=== PATIENT | female | born 1965 ===

== ENCOUNTER 2025-05-30 23:35 | Emergency (ER) | payer OTHER ==
[~2025-05-30] VITALS: Ht 160 cm; Wt 54.5 kg
[2025-05-31 01:01] LABS: Alanine Aminotransferase 18 U/L (7-40); Albumin 4.8 g/dL (3.2-4.8); Alkaline Phosphatase 69 U/L (46-116); Anion Gap 10 (5-15); BUN/Creatinine Ratio 23.2 (10.0-20.0); Bilirubin, Total 0.6 mg/dL (0.2-1.0); Blood Urea Nitrogen 13 mg/dL (9-23); Calcium 10.1 mg/dL (8.7-10.4); Carbon Dioxide 27 mmol/L (20-31); Chloride 105 mmol/L (98-107); Potassium 3.7 mmol/L (3.5-5.1); Sodium 142 mmol/L (136-145); Total Protein 7.4 g/dL (5.7-8.2)
[2025-05-31 01:04] LABS: Hematocrit 36.0 % (36.0-46.0); Hemoglobin 12.1 g/dL (12.2-16.2); Mean Corpuscular Hemoglobin 29.7 pg (28.0-32.0); Mean Corpuscular Volume 88.5 fL (80.0-100.0); Nucleated Red Blood Cells % 0.0 %
[2025-05-31 01:05] LABS: Glucose 218 mg/dL (74-106)
--- NOTE | 2025-05-31 02:17 | DVH ---
CHEST RADIOGRAPH Indication: cp Technique: Single frontal view of the chest was obtained Comparison: None IMPRESSION: Heart appears normal in size. The lungs appear clear without focal airspace opacity, effusion, or pn eumothorax
--- NOTE | 2025-05-31 03:26 | ED.PDOC ---
History of Present Illness HPI Comments 60 y/o Irish speaking F is BIBA for c/o sternal chest pain, that radiates to her left chest wall, shoulder, and arm, and headache. Patient reports sudden onset of symptoms after returning from an outdoor walk, last night, 3x hours prior to arrival. Pain is a 9.10 in severity. No history of pain in the past. Denies any nausea, vomiting, shortness of breathe, fever, chills, or further associated symptoms. Past medical history of DM and HLD and a FMHx of DE. Per EMS, patient's vitals were stable and within normal limits, with exception of a systolic pressure in the 140-160's range and T wave inversion in V1 and V2 via 12leadEKG. En route, patient received 324ASA and IV fluids. Chief Complaint: Chest Pain Time Seen by MD: 23:45 Reviewed Notes: Nurses Notes, Physician Non Invasive Cardiologist Notes, Medications, Allergies Allergies: Coded Allergies: Insulin Detemir (Verified Allergy, Unknown, 05/30/25) Phenol (Verified Allergy, Unknown, 05/30/25) Information Source: Patient, Emergency Med Personnel Mode of Arrival: EMS Severity: Moderate Timing: Hours Review of Systems: REVIEW OF SYSTEMS: No fever, no chills, or fatigue HEENT: No sore throat, no earache, no congestion, no neck pain. Cardiac: chest pain. No palpitations. Lungs: No shortness of breath, no cough. GI: No nausea, no vomiting, no diarrhea, no constipation, no abdominal pain : No dysuria, frequency, or urgency. No hematuria. Musculoskeletal: Left chest wall, shoulder, and back pain Skin: No rash, no itching. Neuro: No headache, no dizziness, no weakness Vital Signs Vital Signs Date Time Temp Pulse Resp B/P (MAP) Pulse Ox O2 Delivery O2 Flow Rate FiO2 05/31/25 04:30 98.7 89 18 116/57 (76) 97 98.7 05/31/25 04:30 Room Air* 0 21 Physical Exam General: Awake, alert and oriented. No acute distress. Skin: Skin in warm, dry and intact. Appropriate color for ethnicity. HEENT: The head is normocephalic and atraumatic. Conjunctivae are clear without exudates or hemorrhage. Sclera is non-icteric. EOM are intact. No signs of nystagmus. Eyelids are normal in appearance without swelling or lesions. Oral mucosa is pink and moist Neck: The neck is supple with normal range of motion. No JVD. Cardiac: Heart rate and rhythm are normal. No murmurs, gallops, or rubs are auscultated. Sternal chest wall tenderness. Blood pressure are equal in bi lateral upper extremities. Respiratory: No signs of respiratory distress. Lung sounds are clear in all lobes bilaterally without rales, rhonchi, or wheezes. Abdominal: Abdomen is soft, non-tender without distention, guarding or rigidity. Bowel sounds are present and normoactive in all four quadrants. Extremities: Upper and lower extremities are atraumatic in appearance without deformity or edema. Neurological: The patient is awake, alert and oriented to person, place, and time with normal speech. Speech is clear. There is no facial asymmetry. Psychiatric: Appropriate mood and affect. Good judgement and insight. Past Medical History PAST MEDICAL HISTORY: Denies Surgical History: Denies all surgeries PUBLIC RELATIONS SENIOR ASSOCIATE History: Denies all PUBLIC RELATIONS SENIOR ASSOCIATE Hx Family History Family History: Unknown Social History Smoker: Non-Smoker Alcohol: Denies ETOH Use Drugs: Denies Drug Use Lives In: Home Was a procedure done? Was a procedure done?: No Differential Dx Considerations may include: Differential diagnoses considered include acute ischemic coronary syndrome, aortic dissection, cardiac tamponade, mediastinitis, pulmonary embolus, pneu mothorax, tension pneumothorax, esophageal rupture, coronary artery vasospasm, myocarditis, pericarditis, pneumonia, pulmonary edema, esophageal tear, pancreatitis, aortic stenosis, dilated cardiomyopathy, hypertrophic cardiomyopathy, mitral valve prolapse, malignancy, pleuritis, pneumomediastinum, primary pulmonary hypertension, cholecystitis, esophageal spasm, esophagus, gastritis, GERD, peptic ulcer disease, costochondritis, fibromyalgia, rib fracture, herpes zoster, radicular syndromes, thoracic outlet syndrome, somatization. X-Ray, Labs, Meds, VS Vital Signs Date Time Temp Pulse Resp B/P (MAP) Pulse Ox O2 Delivery O2 Flow Rate FiO2 05/31/25 04:30 98.7 89 18 116/57 (76) 97 98.7 05/31/25 04:30 89 18 97 Room Air* 0 21 05/31/25 03:00 98.3 97 16 99/59 (72) 97 98.3 05/31/25 02:51 82 05/31/25 01:48 98.4 95 16 102/63 (76) 97 98.4 05/31/25 01:07 93 05/30/25 23:42 103 05/30/25 23:40 98.8 104 18 147/68 (94) 98 98.8 Lab Test 05/31/25 03:24 05/31/25 01:24 05/31/25 00:20 Range/Units Troponin I High Sensitivity 16 15 17 </=34 ng/L White Blood Count 5.6 4.4-10.8 10^3/uL Red Blood Count 4.07 4.0-5.20 10^6/uL Hemoglobin 12.1 L 12.2-16.2 g/dL Hematocrit 36.0 36.0-46.0 % Mean Corpuscular Volume 88.5 80.0-100.0 fL Mean Corpuscular Hemoglobin 29.7 28.0-32.0 pg Mean Corpuscular Hemoglobin Concent 33.5 32.0-36.0 g/dL Red Cell Distribution Width 13.9 11.8-14.3 % Platelet Count 320 140-450 10^3/uL Mean Platelet Volume 7.7 6.9-10.8 fL Neutrophils (%) (Auto) 53.2 37.0-80.0 % Lymphocytes (%) (Auto) 38.3 10.0-50.0 % Monocytes (%) (Auto) 6.6 0.0-12.0 % Eosinophils (%) (Auto) 1.5 0.0-7.0 % Basophils (%) (Auto) 0.4 0.0-2.0 % Neutrophils # (Auto) 3.0 1.6-8.6 10 ^3/uL Lymphocytes # (Auto) 2.1 0.4-5.4 10 ^3/uL Monocytes # (Auto) 0.4 0-1.3 10 ^3/uL Eosinophils # (Auto) 0.1 0-0.8 10 ^3/uL Basophils # (Auto) 0 0-0.2 10 ^3/uL Nucleated Red Blood Cells 0.0 % Sodium Level 142 136-145 mmol/L Potassium Level 3.7 3.5-5.1 mmol/L Chloride Level 105 98-107 mmol/L Carbon Dioxide Level 27 20-31 mmol/L Anion Gap 10 5-15 Blood Urea Nitrogen 13 9-23 mg/dL Creatinine 0.56 0.550-1.02 mg/dL Glomerular Filtration Rate Calc 105 >90 mL/min BUN/Creatinine Ratio 23.2 H 10.0-20.0 Serum Glucose 218 H 74-106 mg/dL Calcium Level 10.1 8.7-10.4 mg/dL Total Bilirubin 0.6 0.2-1.0 mg/dL Aspartate Amino Transferase (AST) 20 13-40 U/L Alanine Aminotransferase (ALT) 18 7-40 U/L Alkaline Phosphatase 69 46-116 U/L B-Type Natriuretic Peptide 7.91 0-100 pg/mL Total Protein 7.4 5.7-8.2 g/dL Albumin 4.8 3.2-4.8 g/dL [place] [address] Ph: [phone] DIAGNOSTIC IMAGING Diagnostic Imaging Report : [id number] Signed PATIENT: TRI VELASQUEZ ACCT: [id number] UNIT: [id number] : 1965 LOC: ER ROOM / BED: / AGE / SEX: 60 / F ADM STATUS: REG ER SERVICE [id number] ORDERING PHYSICIAN: JERROD SHER MD PROCEDURE(s): CXR1 - CHEST XRAY 1 VIEW REASON: cp ORDER NUMBER(s): [id number], ACCESSION NUMBER(s): [id number] CHEST RADIOGRAPH Indication: cp Technique: Single frontal view of the chest was obtained Comparison: None IMPRESSION: Heart appears normal in size. The lungs appear clear without focal airspace opacity, effusion, or pneumothorax ATED BY: LEONA FARRELL MD DICTATED DATE/TIME: 05/31/25215 SIGNED BY: LEONA FARRELL MD SIGNED DATE/TIME: 05/31/25215 CC: Time of 1ST Reevaluation: 00:15 Reevaluation 1ST: Unchanged Patient Education/Counseling: Treatment, Other (Need for admission) Family Education/Counseling: No Family Present SEPSIS Sepsis Screen Date sepsis recognized/suspect: May 30, 2025 Time Sepsis recognized/suspect: 2339 Recent Procedure: No On Antibiotic Therapy: No Respiratory Rate >20: No Heart Rate >90: Yes Temp<36 C (96.8 F) or >38.3 C: No SBP <90 or MAP <65 mmHG: No New Acute Mental Status Change: No Is the patient on CPAP, BIPAP,: No Physician Orders Chest Xray 1 View (05/30/25 23:59) Hyperbaric Technologist (05/30/25 ) Vital Signs Date Time Temp Pulse Resp B/P (MAP) Pulse Ox O2 Delivery O2 Flow Rate FiO2 05/31/25 04:30 98.7 89 18 116/57 (76) 97 98.7 05/31/25 04:30 89 18 97 Room Air* 0 21 05/31/25 03:00 98.3 97 16 99/59 (72) 97 98.3 05/31/25 02:51 82 05/31/25 01:48 98.4 95 16 102/63 (76) 97 98.4 05/31/25 01:07 93 05/30/25 23:42 103 05/30/25 23:40 98.8 104 18 147/68 (94) 98 98.8 Laboratory Tests Test 05/31/25 00:20 White Blood Count 5.6 10^3/uL (4.4-10.8) Departure 1 Departure Time of Disposition: 03:28 Impression: Primary Impression: Chest pain Additional Impression: Hyperglycemia Disposition: 01 HOME / SELF CARE / HOMELESS Condition: Stable Additional Instructions: INSTRUCCIONES DE GÓMEZ DE URGENCIAS INSTRUCCIONES: URBANO ATENTAMENTE TODAS LAS INSTRUCCIONES PROPORCIONADAS EN NIKIA PAQUETE. AUNQUE LE HAYAN DADO EL GÓMEZ DEL DEPARTAMENTO DE EMERGENCIAS, ESTO NO SIGNIFICA QUE TENGA UN "CERTIFICADO DE BUENA GÓMEZ". HOY NO SE POWELL REALIZADO NINGN DIAGNSTICO DEFINITIVO PARA MARCELLE SNTOMAS. ES POSIBLE QUE ESTS EN PROCESO DE DESARROLLAR MONTRELL ENFERMEDAD GRAVE. ES POR ESO QUE DEBE REGRESAR AL SERVICIO DE URGENCIAS SIN FALTA SI PRESENTA ALGN SNTOMA NUEVO O QUE EMPEORA (ESPECIALMENTE SI MARCELLE SNTOMAS INCLUYEN DOLOR EN EL PECHO, DIFICULTAD PARA RESPIRAR, DOLOR ABDOMINAL, FIEBRE, DOLOR DE AMNA, CONFUSIN, DIFICULTAD PARA LUCIANO O CAMINAR). TAMBIN ES MUY IMPORTANTE QUE CONSULTE A UN MDICO DE ATENCIN PRIMARIA DENTRO DE LOS PRXIMOS 3 A 5 OLIVO PARA REALIZAR UN SEGUIMIENTO. SI NO PUEDE CONSEGUIR MONTRELL TWILA, REGRESE AL SERVICIO DE URGENCIAS PARA MONTRELL NUEVA EVALUACIN. DOLOR EN EL PECHO: INSTRUCCIONES DE CUIDADO TABLA DE CONTENIDO DESCRIPCIN GENERAL FIELD SERVICER PUEDES CUIDARTE EN CASA? CUNDO DEBES PEDIR AYUDA? CRDITOS DESCRIPCIN GENERAL HAY MUCHAS COSAS QUE PUEDEN CAUSAR DOLOR EN EL PECHO. ALGUNAS NO SON GRAVES Y MEJORAN POR S SOLAS EN UNOS OLIVO. SIN EMBARGO, ALGUNOS TIPOS DE DOLOR EN EL PECHO REQUIEREN MS PRUEBAS Y TRATAMIENTO. ES POSIBLE QUE LOPEZ MDICO LE HAYA REC OMENDADO MONTRELL VISITA DE SEGUIMIENTO EN LOS PRXIMOS OLIVO. SI NO MEJORA, ES POSIBLE QUE NECESITE MS PRUEBAS O TRATAMIENTO. AUNQUE LOPEZ MDICO LE HAYA DADO DE GÓMEZ, DEBE ESTAR ATENTO A CUALQUIER PROBLEMA. EL MDICO LE REALIZ MONTRELL REVISIN EXHAUSTIVA, YOMI A VECES PUEDEN SURGIR PROBLEMAS MS ADELANTE. SI PRESENTA SNTOMAS NUEVOS O SI ESTOS NO MEJORAN, BUSQUE ATENCIN MDICA DE INMEDIATO. SI TIENE UN DOLOR O PRESIN EN EL PECHO PEOR O DIFERENTE QUE DURA MS DE 5 MINUTOS O SI SE DESMAY (PERDI EL CONOCIMIENTO), LLAME AL 911 O BUSQUE OTRA AYUDA DE EMERGENCIA DE INMEDIATO. MONTRELL VISITA MDICA ES SOLO UN PASO EN LOPEZ TRATAMIENTO. INCLUSO SI SE SIENTE MEJOR, DEBE SEGUIR LAS RECOMENDACIONES DE LOPEZ MDICO, DANNY ASISTIR A TODAS LAS CITAS DE SEGUIMIENTO SUGERIDAS Y VERNA LOS MEDICAMENTOS EXACTAMENTE DANNY SE LE INDIQUE. ESTO LE AYUDAR A RECUPERARSE Y A PREVENIR PROBLEMAS FUTUROS. FIELD SERVICER PUEDES CUIDARTE EN CASA? DESCANSA HASTA QUE TE SIENTAS MEJOR. TOME LOPEZ MEDICAMENTO EXACTAMENTE DANNY SE LO RECETARON. LLAME A LOPEZ MDICO SI TRICIA QUE TIENE ALGN PROBLEMA CON LOPEZ MEDICAMENTO. NO CONDUZCA DESPUS DE VERNA UN ANALGSICO RECETADO. CUNDO DEBES PEDIR AYUDA? LLAME AL SI: TE DESMAYASTE (PERDISTE EL CONOCIMIENTO). TIENES DIFICULTAD GRAVE PARA RESPIRAR. TIENE SNTOMAS DE UN ATAQUE CARDACO. ESTOS PUEDEN INCLUIR: DOLOR O PRESIN EN EL PECHO, O MONTRELL SENSACIN EXTRAA EN EL PECHO. TRANSPIRACIN. DIFICULTAD PARA RESPIRAR. NUSEAS O VMITOS. DOLOR, PRESIN O MONTRELL SENSACIN EXTRAA EN LA ESPALDA, EL CHRISTEN, LA MANDBULA O LA PARTE SUPERIOR DEL ABDOMEN O EN IAIN O AMBOS HOMBROS O BRAZOS. MAREO O DEBILIDAD REPENTINA. UN RITMO CARDACO RPIDO O IRREGULAR. DESPUS DE LLAMAR AL , EL OPERADOR PODRA INDICARLE QUE MASTIQUE MONTRELL ASPIRINA PARA ADULTOS O DE 2 A 4 ASPIRINAS DE DOSIS BAJA. ESPERE LA AMBULANCIA. NO INTENTE CONDUCIR. LLAME A LOPEZ MDICO AHORA O BUSQUE ATENCIN MDICA INMEDIATA SI: TIENES ALGUNA DIFICULTAD PARA RESPIRAR. TIENE UN DOLOR EN EL PECHO NUEVO O DIFERENTE. SE SIENTE MAREADO O ATURDIDO O DANNY SI SE PUDIERA DESMAYAR. PRESTE ATENCIN DE CERCA A LOS CAMBIOS EN LOPEZ GÓMEZ Y ASEGRESE DE COMUNICARSE CON LOPEZ MDICO SI NO MEJORA DANNY SE ESPERABA. CRDITOS PARA EL DOLOR DE PECHO: INSTRUCCIONES DE CUIDADO ACTUALIZADO AL: 2023 AUTOR: PERSONAL DE [employer] JUNTA DE REVISIN CLNICA TODA LA EDUCACIN DE [employer] ES REVISADA POR UN EQUIPO QUE INCLUYE MDICOS, ENFERMERAS, PROFESIONALES AVANZADOS, DIETISTAS REGISTRADOS Y OTROS PROFESIONALES DE LA GÓMEZ. Resultados Mdicos Vital Signs Date Time Temp Pulse Resp B/P (MAP) Pulse Ox O2 Delivery O2 Flow Rate FiO2 05/31/25 03:00 98.3 97 16 99/59 (72) 97 98.3 05/31/25 02:51 82 05/31/25 01:48 98.4 95 16 102/63 (76) 97 98.4 05/31/25 01:07 93 05/30/25 23:42 103 05/30/25 23:40 98.8 104 18 147/68 (94) 98 98.8 Lab Test 05/31/25 03:24 05/31/25 01:24 05/31/25 00:20 Range/Units Troponin I High Sensitivity Pending 15 17 </=34 ng/L White Blood Count 5.6 4.4-10.8 10^3/uL Red Blood Count 4.07 4.0-5.20 10^6/uL Hemoglobin 12.1 L 12.2-16.2 g/dL Hematocrit 36.0 36.0-46.0 % Mean Corpuscular Volume 88.5 80.0-100.0 fL Mean Corpuscular Hemoglobin 29.7 28.0-32.0 pg Mean Corpuscular Hemoglobin Concent 33.5 32.0-36.0 g/dL Red Cell Distribution Width 13.9 11.8-14.3 % Platelet Count 320 140-450 10^3/uL Mean Platelet Volume 7.7 6.9-10.8 fL Neutrophils (%) (Auto) 53.2 37.0-80.0 % Lymphocytes (%) (Auto) 38.3 10.0-50.0 % Monocytes (%) (Auto) 6.6 0.0-12.0 % Eosinophils (%) (Auto) 1.5 0.0-7.0 % Basophils (%) (Auto) 0.4 0.0-2.0 % Neutrophils # (Auto) 3.0 1.6-8.6 10 ^3/uL Lymphocytes # (Auto) 2.1 0.4-5.4 10 ^3/uL Monocytes # (Auto) 0.4 0-1.3 10 ^3/uL Eosinophils # (Auto) 0.1 0-0.8 10 ^3/uL Basophils # (Auto) 0 0-0.2 10 ^3/uL Nucleated Red Blood Cells 0.0 % Sodium Level 142 136-145 mmol/L Potassium Level 3.7 3.5-5.1 mmol/L Chloride Level 105 98-107 mmol/L Carbon Dioxide Level 27 20-31 mmol/L Anion Gap 10 5-15 Blood Urea Nitrogen 13 9-23 mg/dL Creatinine 0.56 0.550-1.02 mg/dL Glomerular Filtration Rate Calc 105 >90 mL/min BUN/Creatinine Ratio 23.2 H 10.0-20.0 Serum Glucose 218 H 74-106 mg/dL Calcium Level 10.1 8.7-10.4 mg/dL Total Bilirubin 0.6 0.2-1.0 mg/dL Aspartate Amino Transferase (AST) 20 13-40 U/L Alanine Aminotransferase (ALT) 18 7-40 U/L Alkaline Phosphatase 69 46-116 U/L B-Type Natriuretic Peptide 7.91 0-100 pg/mL Total Protein 7.4 5.7-8.2 g/dL Albumin 4.8 3.2-4.8 g/dL [place] [address] Ph: [phone] DIAGNOSTIC IMAGING Diagnostic Imaging Report : [id number] Signed PATIENT: TRI VELASQUEZ ACCT: [id number] UNIT: [id number] : 1965 LOC: ER ROOM / BED: / AGE / SEX: 60 / F ADM STATUS: REG ER SERVICE [id number] ORDERING PHYSICIAN: JERROD SHER MD PROCEDURE(s): CXR1 - CHEST XRAY 1 VIEW REASON: cp ORDER NUMBER(s): [id number], ACCESSION NUMBER(s): [id number] CHEST RADIOGRAPH Indication: cp Technique: Single frontal view of the chest was obtained Comparison: None IMPRESSION: Heart appears normal in size. The lungs appear clear without focal airspace opacity, effusion, or pneumothorax ATED BY: LEONA FARRELL MD DICTATED DATE/TIME: 05/31/25215 SIGNED BY: LEONA FARRELL MD SIGNED DATE/TIME: 05/31/25215 CC: Comments DISCUSSED RESULTS WITH THE PATIENT AND DAUGHTER. PATIENT OFFERED ADMISSION FOR FURTHER TREATMENT, EVALUATION AND MONITORING. AT THIS TIME PATIENT WOULD LIKE TO GO HOME TO FOLLOW UP WITH THE PRIMARY CARE PROVIDER. 60-YEAR-OLD FEMALE WITH CHEST PAIN SERIAL TROPONIN AND EKG NEGATIVE CHEST X-RAY NEGATIVE FOR ACUTE PROCESS CHEST PAIN RESOLVED IN THE ED PATIENT FELT STABLE FOR DISCHARGE HOME TO FOLLOW UP PRIMARY CARE PROVIDER Extensive evaluation was performed in attempt to identify or rule out: (See differential diagnosis section) The following tests were ordered, and results were reviewed by me and discussed with patient AND DAUGHTER: (See diagnostic results section) The following test were independently interpreted by me: EKG I reviewed and agreed with the following test results read by other providers: Chest x-ray I reviewed the following notes from the pt's past medical encounters: N/A Additional information was gathered from interviewing the following independent historians: EMS PERSONNEL, PATIENT'S DAUGHTER Discussion of management or test interpretation with external physician/other qualified health care professionals: N/A Decision regarding hospitalization or escalation of hospital level of care: Risks and benefits of admission for further treatment of patient's condition was considered however due to patient's stable condition patient will be discharged to follow up closely or return to care for worsening of condition or inability to follow up. Critical Care Note Critical Care Time?: No Stability Stability form required: No Heart Score Heart Score: Heart Score Response (Comments) Value History N/A 0 EKG N/A 0 Age N/A 0 Risk Factors N/A 0 Troponin N/A 0 Total 0 I personally scribed for JERROD SHER MD ([email or web address]) on 05/31/25 at 03:26. Electronically submitted by Cole Santoyo ([email or web address]). JERROD SHER MD May 31, 2025 03:26
[2025-05-31 04:30] VITALS: BP 116/57; PULSE 89; RESP 18; TEMP 98.7; O2SAT 97
--- NOTE | 2025-05-31 11:25 | ECG ---
[facility] Test Date: 2025-05-31 Test Time: 01:07:07 Pat Name: TRI VELASQUEZ Department: ED Room: Gender: F Retort Firer: : 1965 Requested By: JERROD SHER Order Number: [id number] Reading MD: Measurements Intervals [place] Rate: 93 P: 75 [place]: 141 QRS: -34 QRSD: 82 T: 43 QT: 348 QTc: 433 Interpretive Statements Sinus rhythm Left axis deviation Low voltage, precordial leads Please click the below link to view image of tracing.
--- NOTE | 2025-05-31 11:25 | ECG ---
[facility] Test Date: 2025-05-30 Test Time: 23:42:10 Pat Name: TRI VELASQUEZ Department: ED Room: Gender: F Reliability Specialist: : 1965 Requested By: JERROD SHER Order Number: [id number] Reading MD: Measurements Intervals [place] Rate: 103 P: 66 [place]: 147 QRS: -14 QRSD: 96 T: 29 QT: 339 QTc: 444 Interpretive Statements Sinus tachycardia Inferior infarct, old Abnormal lateral Q waves Anterior infarct, old Please click the below link to view image of tracing.
--- NOTE | 2025-05-31 11:26 | ECG ---
[facility] Test Date: 2025-05-31 Test Time: 02:51:07 Pat Name: TRI VELASQUEZ Department: ED Room: Gender: F House Principal: : 1965 Requested By: JERROD SHER Order Number: [id number] Reading MD: Measurements Intervals [place] Rate: 82 P: 72 PA: 143 QRS: -5 QRSD: 86 T: 39 QT: 364 QTc: 425 Interpretive Statements Sinus rhythm Low voltage, precordial leads Please click the below link to view image of tracing.
== END 2025-05-31 04:37 | disposition home or self-care (01) ==
LOC: EDBD 23:35 → ER 23:35
DX: R07.2 Precordial pain (principal); E11.65 Type 2 diabetes mellitus with hyperglycemia; E78.5 Hyperlipidemia, unspecified; Z88.8 Allergy status to other drugs, medicaments and biological substances
CPT/HCPCS: 36415; 71045; 80053; 83880; 84484; 85025; 93005